=== PATIENT | female | born 1995 | race Caucasian/White ===

== ENCOUNTER 2019-03-25 03:41 | Emergency (ER) | payer OTHER ==
[~2019-03-25] VITALS: Ht 175.3 cm; Wt 81.7 kg
[2019-03-25] MEDS ORDERED: BIRTH CONTROLL (03:53)
[2019-03-25 04:29] VITALS: BP 147/83
== END 2019-03-25 05:04 | disposition home or self-care (01) ==
LOC: M.ERS 03:41
DX: S60.222A Contusion of left hand, initial encounter (principal); W01.0XXA Fall on same level from slipping, tripping and stumbling without subsequent striking against object, initial encounter; Y92.89 Other specified places as the place of occurrence of the external cause; Y93.89 Activity, other specified; Y99.8 Other external cause status